=== PATIENT | female | born 1990 | race Hispanic/Latino ===

== ENCOUNTER 2021-07-15 05:40 | Emergency (ER) | payer SELFPAY ==
[~2021-07-15] VITALS: Ht 157.5 cm; Wt 53.5 kg
[2021-07-15] MEDS ORDERED: AMOXICILLIN500 MG PO (06:12)
== END 2021-07-15 06:23 | disposition home or self-care (01) ==
LOC: FSED 06:05
DX: R30.0 Dysuria (principal); N39.0 Urinary tract infection, site not specified; R10.30 Lower abdominal pain, unspecified
CPT/HCPCS: 81003; 99282